=== PATIENT | female | born 1950 | race Caucasian/White ===

== ENCOUNTER 2021-04-10 22:24 | Inpatient (IN) | payer MEDICARE, OTHER ==
[~2021-04-10] VITALS: Ht 162.6 cm; Wt 58.5 kg
[2021-04-11] MEDS ORDERED: BUSPIRONE HCL7.5 MG PO (03:27)
[2021-04-11] MEDS ORDERED: [UNRECOGNIZED DRUG - OTHER] PO (03:28)
[2021-04-11] MEDS ORDERED: SINEMET PO (03:28)
[2021-04-11] MEDS ORDERED: ABILIFY10 MG PO (03:29)
[2021-04-11] MEDS ORDERED: SERTRALINE HCL100 MG PO (03:29)
[2021-04-11] MEDS ORDERED: CRESTOR 10 MG T10 MG PO (03:30)
[2021-04-11] MEDS ORDERED: METOPROLOL SUCC25 MG PO (03:31)
[2021-04-11] MEDS ORDERED: COLESEVELAM HC625 MG PO (03:31)
[2021-04-11] MEDS ORDERED: DIVALPROEX SOD125 M1 PO (03:32)
[2021-04-11] MEDS ORDERED: CLONAZEPAM1 MG PO (03:33)
[2021-04-11] MEDS ORDERED: BISACODYL10 MG PR (03:34)
[2021-04-11] MEDS ORDERED: LASIX40 MG PO (03:35)
[2021-04-11] MEDS ORDERED: TYLENOL325 MG PO (03:35)
[2021-04-11] MEDS ORDERED: OMEPRAZOLE20 MG PO (03:36)
[2021-04-11] MEDS ORDERED: ASPIRIN EC81 MG PO (03:37)
[2021-04-11] MEDS ORDERED: MELATONIN3 MG PO (03:37)
[2021-04-11 05:06] LABS: HEMOGLOBIN 10.5 gm/dl (12.3-15.3); RED BLOOD COUNT 3.29 M/UL (4.00-5.10); WHITE BLOOD COUNT 6.3 K/UL (4.5-11.0)
[2021-04-11 05:25] LABS: BUN/CREATININE RATIO 57 (0-10)
[2021-04-11 06:06] LABS: BORDETELLA PARAPERTUSSIS Not Detected (Not Detectd); BORDETELLA PERTUSSIS Not Detected (Not Detectd); CHLAMYDIA PNEUMONIAE Not Detected (Not Detectd); CORONAVIRUS HKU1 Not Detected (Not Detectd); CORONAVIRUS NL63 Not Detected (Not Detectd); CORONAVIRUS OC43 Not Detected (Not Detectd); CORONOAVIRUS 229E Not Detected (Not Detectd); HUMAN METAPNEUMOVIRUS Not Detected (Not Detectd); HUMAN RHINOVIRUS/ENTEROVIRUS Not Detected (Not Detectd); INFLUENZA A Not Detected (Not Detectd); INFLUENZA B Not Detected (Not Detectd); MYCOPLASMA PNEUMONIAE Not Detected (Not Detectd); PARAINFLUENZA VIRUS 1 Not Detected (Not Detectd); PARAINFLUENZA VIRUS 2 Not Detected (Not Detectd); PARAINFLUENZA VIRUS 3 Not Detected (Not Detectd); PARAINFLUENZA VIRUS 4 Not Detected (Not Detectd); RESPIRATORY SYNCYTIAL VIRUS Not Detected (Not Detectd)
[2021-04-11 07:19] LABS: SARS-CoV-2 DETECTED (Not Detectd)
[2021-04-11] MEDS ORDERED: NITROSTAT0.4 MG SL (15:55)
[2021-04-11] MEDS ORDERED: KENALOG CREAM 015 GM TOP (15:56)
[2021-04-11] MEDS ORDERED: KETOCONAZOLE120 ML TOP (15:57)
[2021-04-11] MEDS ORDERED: CALMOSEPTINE OI71 GM TOP (15:58)
[2021-04-11] MEDS ORDERED: ZINC OXIDE60 GM TOP (16:00)
[2021-04-12 05:25] LABS: HEMOGLOBIN 10.9 gm/dl (12.3-15.3); RED BLOOD COUNT 3.49 M/UL (4.00-5.10)
[2021-04-12 05:42] LABS: BUN/CREATININE RATIO 46 (0-10)
[2021-04-13 04:44] LABS: HEMOGLOBIN 10.9 gm/dl (12.3-15.3); RED BLOOD COUNT 3.51 M/UL (4.00-5.10); WHITE BLOOD COUNT 5.7 K/UL (4.5-11.0)
[2021-04-13 05:19] LABS: BUN/CREATININE RATIO 49 (0-10)
[2021-04-14 05:38] LABS: HEMOGLOBIN 11.2 gm/dl (12.3-15.3); RED BLOOD COUNT 3.53 M/UL (4.00-5.10); WHITE BLOOD COUNT 6.7 K/UL (4.5-11.0)
[2021-04-14 06:22] LABS: BUN/CREATININE RATIO 54 (0-10)
[2021-04-15 02:58] LABS: HEMOGLOBIN 12.4 gm/dl (12.3-15.3)
[2021-04-15 03:03] LABS: RED BLOOD COUNT 3.9 M/UL (4.00-5.10); WHITE BLOOD COUNT 10.1 K/UL (4.5-11.0)
[2021-04-15 03:23] LABS: BUN/CREATININE RATIO 54 (0-10)
[2021-04-16 03:49] LABS: RED BLOOD COUNT 3.72 M/UL (4.00-5.10)
[2021-04-16 03:51] LABS: WHITE BLOOD COUNT 7.3 K/UL (4.5-11.0)
[2021-04-16 04:05] LABS: BUN/CREATININE RATIO 56 (0-10)
[2021-04-17 03:38] LABS: HEMOGLOBIN 13.3 gm/dl (12.3-15.3)
[2021-04-17 03:41] LABS: RED BLOOD COUNT 4.18 M/UL (4.00-5.10); WHITE BLOOD COUNT 11.6 K/UL (4.5-11.0)
[2021-04-17 04:02] LABS: BUN/CREATININE RATIO 70 (0-10)
[2021-04-18 03:21] LABS: HEMOGLOBIN 12.4 gm/dl (12.3-15.3); RED BLOOD COUNT 3.88 M/UL (4.00-5.10); WHITE BLOOD COUNT 11.8 K/UL (4.5-11.0)
[2021-04-18 03:42] LABS: BUN/CREATININE RATIO 83 (0-10)
[2021-04-19] MEDS ORDERED: CLONAZEPAM1 MG PO (16:12)
[2021-04-19] MEDS ORDERED: TYLENOL325 MG PO (16:12)
[2021-04-19] MEDS ORDERED: ROPINIROLE HCL0.5 MG PO (16:22)
== END 2021-04-20 21:00 | DRG 208 ==
LOC: CCU 22:24 → PROG CARE 04-11 02:54 → CCU 04-11 02:54 → PROG CARE 04-14 23:22
PROVIDERS: Internal Medicine; ADMIT Internal Medicine
PROC: XW033E5 Introduction of Remdesivir Anti-infective into Peripheral Vein, Percutaneous Approach, New Technology Group 5 (ICD-10-PCS; principal; 2021-04-11)
PROC: 5A1945Z Respiratory Ventilation, 24-96 Consecutive Hours (ICD-10-PCS; 2021-04-11)
PROC: 8E0ZXY6 Isolation (ICD-10-PCS; 2021-04-11)
PROC: 3E0333Z Introduction of Anti-inflammatory into Peripheral Vein, Percutaneous Approach (ICD-10-PCS; 2021-04-11)
PROC: B24BZZZ Ultrasonography of Heart with Aorta (ICD-10-PCS; 2021-04-12)
DX: U07.1 COVID-19 (principal); J15.9 Unspecified bacterial pneumonia; J12.82 Pneumonia due to coronavirus disease 2019; J96.01 Acute respiratory failure with hypoxia; I50.43 Acute on chronic combined systolic (congestive) and diastolic (congestive) heart failure; E87.0 Hyperosmolality and hypernatremia; E78.5 Hyperlipidemia, unspecified; G20 Parkinson's disease; I49.5 Sick sinus syndrome; R13.10 Dysphagia, unspecified; G47.00 Insomnia, unspecified; F44.9 Dissociative and conversion disorder, unspecified; K21.9 Gastro-esophageal reflux disease without esophagitis; Z66 Do not resuscitate; Z95.1 Presence of aortocoronary bypass graft; K59.00 Constipation, unspecified; F32.9 Major depressive disorder, single episode, unspecified; F41.9 Anxiety disorder, unspecified; F42.9 Obsessive-compulsive disorder, unspecified; G40.909 Epilepsy, unspecified, not intractable, without status epilepticus; R73.9 Hyperglycemia, unspecified; I11.0 Hypertensive heart disease with heart failure; T38.0X5A Adverse effect of glucocorticoids and synthetic analogues, initial encounter; F02.80 Dementia in other diseases classified elsewhere, unspecified severity, without behavioral disturbance, psychotic disturbance, mood disturbance, and anxiety; I25.10 Atherosclerotic heart disease of native coronary artery without angina pectoris; D69.6 Thrombocytopenia, unspecified; D75.89 Other specified diseases of blood and blood-forming organs; D64.9 Anemia, unspecified; Z98.890 Other specified postprocedural states; Z91.041 Radiographic dye allergy status; Z95.2 Presence of prosthetic heart valve; Z99.81 Dependence on supplemental oxygen; Z95.0 Presence of cardiac pacemaker
CPT/HCPCS: ECHO; 36415; 36600; 71045; 74230; 80048; 80053; 80202; 81001; 82550; 82553; 82803; 82962; 83036; 83615; 83735; 83880; 84484; 85025; 85027; 86140; 87040; 87070; 87081; 87205; 87633; 92526; 92610; 92611-GN; 93306; 94002; 94003; 94640; 94664; 94668; 94760; C9113; J0248; J0360; J0696; J1100; J1650; J2060; J2543; J2704; J3370; J3475; J7030; J7070